=== PATIENT | female | born 1960 | race American Indian/Alaskan Native ===

== ENCOUNTER 2018-04-11 13:38 | Emergency (ER) | payer BC ==
--- NOTE | 2018-04-11 14:07 | ED PDOC ---
Arrival/HPI - General Time Seen by Provider: 04/11/18 14:04 Historian: Patient - History of Present Illness Narrative History of Present Illness (Text): 04/11/18 14:07 57 y/o female, no significant pmh, nkda, c/o rt. anterior knee pain s/p twisted about 1 hour ago. Pt. stated that her dog running towards her, twisted the rt. knee, been having pain and able to walk/bear weight, no numbness or tingling, no calf or thigh pain, no fever or chills, no chest pain or shortness of breath , no other medical or psychological complaints. Past Medical History - Provider Review Nursing Documentation Reviewed: Yes Family/Social History - Physician Review Nursing Documentation Reviewed: Yes Family/Social History: Unknown Family HX Allergies/Home Meds Allergies/Adverse Reactions: Allergies No Known Allergies Allergy (Verified 04/11/18 14:16) Review of Systems - Review of Systems Constitutional: absent: Fatigue, Fevers Eyes: absent: Vision Changes ENT: absent: Hearing Changes Respiratory: absent: SOB, Cough Cardiovascular: absent: Chest Pain Gastrointestinal: absent: Abdominal Pain, Diarrhea, Nausea, Vomiting Musculoskeletal: Arthralgias. absent: Back Pain, Joint Swelling, Myalgias Skin: absent: Rash, Pruritis Neurological: absent: Headache, Dizziness Psychiatric: absent: Anxiety, Depression Physical Exam Vital Signs Reviewed: Yes Vital Signs Temp Pulse Resp BP Pulse Ox 04/11/18 20:04 97.9 F 86 16 160/82 H 99 04/11/18 18:03 86 16 160/82 H 99 04/11/18 16:02 88 16 168/88 H 99 04/11/18 14:11 98.3 F 86 17 173/93 H 99 Temperature: Afebrile Blood Pressure: Hypertensive Pulse: Regular Respiratory Rate: Normal Appearance: Positive for: Well-Appearing, Non-Toxic, Comfortable Pain Distress: Mild Mental Status: Positive for: Alert and Oriented X 3 - Systems Exam Head: Present: Atraumatic, Normocephalic Pupils: Present: PERRL Extroacular Muscles: Present: EOMI Conjunctiva: Present: Normal Mouth: Present: Moist Mucous Membranes Neck: Present: Normal Range of Motion Respiratory/Chest: Present: Clear to Auscultation, Good Air Exchange. No: Respiratory Distress, Accessory Muscle Use Cardiovascular: Present: Regular Rate and Rhythm, Normal S1, S2. No: Murmurs Abdomen: No: Tenderness, Distention, Peritoneal Signs Back: Present: Normal Inspection Upper Extremity: Present: Normal Inspection. No: Cyanosis, Edema Lower Extremity: Present: Normal Inspection, NORMAL PULSES, Normal ROM, Neurovascularly Intact, Capillary Refill < 2 s, Other (RLE: mild +ttp on the lateral anterior aspect of the knee, no calf or thigh swelling/tenderness, negative jorden and mcguire signs, FROM without limitation, sensation intact, motor 5/5, +DPPT Pulses, capillary refill< 2 seconds, neurovascular intact. ). No: Edema, CALF TENDERNESS, Cyanosis, Jorden's Sign, Swelling, Erythema, Deformity, Temperature Abnormalties Neurological: Present: GCS=15, CN II-XII Intact, Speech Normal Skin: Present: Warm, Dry, Normal Color. No: Rashes Psychiatric: Present: Alert, Oriented x 3, Normal Insight, Normal Concentration Medical Decision Making ED Course and Treatment: 04/11/18 14:30 -rt. knee xray -pt. refused pain med 04/11/18 16:41 -xray show IMPRESSION: Irregularity and depression of the lateral tibial plateau of indeterminate chronicity. No significant joint effusion. Correlate clinically. -I spoke to the orthopedic Dr. Crowder, recommend the CT of the rt. knee, ordered -blas wrap applied by me with neurovascular intact. -Pt. request pain med now but refused IV/IM at this time, percocet/zofran ordered. 04/11/18 18:13 -Pt. evaluated by Dr. Crowder in the ER, came to evaluate the patient in person, recommend to have CT rt. knee and discharge home with blas wrap/knee immmobilizer with crutches, will see the patient outpatient as follow up with no emergent surgical intervention at this time. 04/11/18 -I just check the [facility] report, there is no visible or available [facility] report available noted. -CT RLE: Comminuted fracture right lateral tibial plateau with suprapatellar fat/fluid/blood level. -blas wrap and knee immobilizer applied by me with neurovascular intact as per orthopedic Dr. Crowder, copy of the CT given to the patient, will discharge home -Discharge home with percocet, blas wrap, knee immobilizer, crutches, non-weight bearing, bring the CT disc to Dr. Crowder as he is expecting to see you regarding about your injury as you been told, follow up with your own pmd within 3 days, return to the ER for any new or worsening signs or symptoms. - RAD Interpretation Radiology Orders: 04/11/18 14:27 KNEE W PATELLA RIGHT 3 VIEW [RAD] Stat 04/11/18 16:40 EXT LOWER W/O CONTRAST RIGHT [CT] Stat Rt. knee xray: PROCEDURE: Right Knee Radiographs. HISTORY: rt. knee pain x 2 hour s/p injury COMPARISON: None. FINDINGS: BONES: Irregularity and depression of the lateral tibial plateau. In the absence of a significant joint effusion or labral hemarthrosis, this may represent a chronic deformity. However, clinical correlation is requested. There is no acute fracture seen elsewhere. JOINTS: Normal. No osteoarthritis. JOINT EFFUSION: None. OTHER FINDINGS: None. IMPRESSION: Irregularity and depression of the lateral tibial plateau of indeterminate chronicity. No significant joint effusion. Correlate clinically. CT RLE: [facility] Division of Radiology [address] [address] Tel. no. Patient Name: SAYDA ALBERT Pt. Address: [address] [place] [address] Rec #: [id number] [place] [address]: Sujatha PATTERSON,[place] Pt Order Location: ED : 1960 Female Age: 57 Order #: [id number] Reason for exam: rt. lateral tibial plateau fracture, unknown chron CT Scan EXT LOWER W/O CONTRAST RIGHT Exam Date: 04/11/18 This imaging exam was performed at [facility] EXAM: CT Right Lower Extremity Without Intravenous Contrast, Knee EXAM DATE/TIME: Examination ordered 04/11/2018 4:40 PM. Image number total count reviewed [id number] CLINICAL HISTORY: The patient is 57 years old and is female; Abnormal findings; Abnormal imaging study; Rt knee; Additional info: Rt. Lateral tibial plateau fracture, unknown chron Facility exam id and description: Ct extlowsr ext lower w/o contrast right TECHNIQUE: Axial computed tomography images of the right knee without intravenous contrast. All CT scans at this facility use at least one of these dose optimization techniques: automated exposure control; mA and/or kV adjustment per patient size (includes targeted exams where dose is matched to clinical indication); or iterative reconstruction. Coronal and sagittal reformatted images were created and reviewed. COMPARISON: DX - KNEE W PATELLA RIGHT 3 VIEW 2018-04-11 14:51 FINDINGS: BONES/JOINTS: Comminuted fracture right lateral tibial plateau with suprapatellar fat/fluid/blood level. SOFT TISSUES: See above IMPRESSION: Comminuted fracture right lateral tibial plateau with suprapatellar fat/fluid/blood level. Dictated By: Bharathi Baltazar MD Dictated Date/Time: 04/11/182017 Signed By: Bharathi Baltazar MD Date Signed: 2017 Transcribed By: SINDI Transcribe Date/Time : 04/11/182017 Biological Technical Officer: Radiologist - Medication Orders Current Medication Orders: Discontinued Medications Ondansetron HCl (Zofran Odt) 4 mg PO STAT STA Stop: 04/11/18 16:48 Last Admin: 04/11/18 16:58 Dose: 4 mg Oxycodone/Acetaminophen (Percocet 5/325 Mg Tab) 1 tab PO STAT STA Stop: 04/11/18 16:48 Last Admin: 04/11/18 16:58 Dose: 1 tab MAR Pain Assessment Document 04/11/18 16:58 MS (Rec: 04/11/18 16:59 MS [facility] [place]-[id number]) Pain Reassessment Is this a pain reassessment? No Sleep Is patient sleeping during reassessment? No Presence of Pain Presence of Pain Yes Pain Scale Used Pain Scale Used Numeric Location Left, Right or Bilateral Right Pain Location Body Site Knee Description Description Constant Intensity of Pain at present 8 - PA / [employer] / Resident Statement MD/DO has reviewed & agrees with the documentation as recorded. Disposition/Present on Arrival - Present on Arrival Any Indicators Present on Arrival: No History of DVT/PE: No History of Uncontrolled Diabetes: No Urinary Catheter: No History of Decub. Ulcer: No - Disposition Have Diagnosis and Disposition been Completed?: Yes Diagnosis: Tibial plateau fracture, right Disposition: HOSPITALIZED Disposition Time: 14:31 Condition: IMPROVED Discharge Instructions (ExitCare): Tibial Plateau Fracture Additional Instructions: -Discharge home with percocet, blas wrap, knee immobilizer, crutches, non-weight bearing, bring the CT disc to Dr. Crowder as he is expecting to see you regarding about your injury as you been told, follow up with your own pmd within 3 days, return to the ER for any new or worsening signs or symptoms. Prescriptions: oxyCODONE/Acetaminophen [Percocet 5/325 mg Tab] 1 tab PO QID PRN #12 tab PRN Reason: Other Referrals: Evan Crowder MD [Staff Provider] - Follow up with primary Forms: WORK NOTE
[2018-04-11 14:19] VITALS: PULSE 86; O2SAT 99; BMI 28.3
--- NOTE | 2018-04-11 16:04 | RAD ---
PROCEDURE: Right Knee Radiographs. HISTORY: rt. knee pain x 2 hour s/p injury COMPARISON: None. FINDINGS: BONES: Irregularity and depression of the lateral tibial plateau. In the absence of a significant joint effusion or labral hemarthrosis, this may represent a chronic deformity. However, clinical correlation is requested. There is no acute fracture seen elsewhere. JOINTS: Normal. No osteoarthritis. JOINT EFFUSION: None. OTHER FINDINGS: None. IMPRESSION: Irregularity and depression of the lateral tibial plateau of indeterminate chronicity. No significant joint effusion. Correlate clinically.
[2018-04-11] MEDS ORDERED: Oxycodone/Acetaminophen 5/325 mg Tab PO STA (16:47)
[2018-04-11 20:03] VITALS: BP 160/82; RESP 16
[2018-04-11 20:05] VITALS: TEMP 97.9
--- NOTE | 2018-04-12 09:15 | CT ---
EXAM: CT Right Lower Extremity Without Intravenous Contrast, Knee EXAM DATE/TIME: Examination ordered 04/11/2018 4:40 PM. Image number total count reviewed [id number] CLINICAL HISTORY: The patient is 57 years old and is female; Abnormal findings; Abnormal imaging study; Rt knee; Additional info: Rt. Lateral tibial plateau fracture, unknown chron Facility exam id and description: Ct extlowsr ext lower w/o contrast right TECHNIQUE: Axial computed tomography images of the right knee without intravenous contrast. All CT scans at this facility use at least one of these dose optimization techniques: automated exposure control; mA and/or kV adjustment per patient size (includes targeted exams where dose is matched to clinical indication); or iterative reconstruction. Coronal and sagittal reformatted images were created and reviewed. COMPARISON: DX - KNEE W PATELLA RIGHT 3 VIEW 2018-04-11 14:51 FINDINGS: BONES/JOINTS: Comminuted fracture right lateral tibial plateau with suprapatellar fat/fluid/blood level. SOFT TISSUES: See above IMPRESSION: Comminuted fracture right lateral tibial plateau with suprapatellar fat/fluid/blood level.
--- NOTE | 2018-04-15 11:19 | CON ---
DATE: 04/11/2018 REASON FOR CONSULTATION: Right knee tibial plateau fracture. HISTORY OF PRESENT ILLNESS: This is a 57-year-old female who was walking her dog today, sustained a fall when a dog ran into her right knee. The patient's knee buckled and she was not able to get up and walk afterwards. She presents to [facility] with complaints of right knee pain and swelling. Initial x-rays were done confirmed lateral tibial plateau fracture. I was consulted for further evaluation and treatment. The patient denies any knee problems prior to her injury. PHYSICAL EXAMINATION: EXTREMITIES: Right knee, there is diffuse swelling. Tender to palpation over the lateral tibial plateau. Knee range of motion is 5 degrees to 20 degrees. Limited due to pain. Neurovascularly intact. The patient can straight leg raise. SKIN: Intact. LABORATORY DATA: X-rays of the right knee were seen and reviewed showed depressed lateral tibial plateau fracture. CT scan of the right knee was also seen and reviewed shows a depressed right tibial plateau fracture, greater than 4 mm loss of big void of the anterior and peripheral tibial plateau with highly comminuted fracture. There is also depression of the lateral tibial plateau. ASSESSMENT: Right knee lateral tibial plateau fracture type 3. PLAN: I had a long discussion with the patient regarding the above findings. Due to her injury and instability of the fracture pattern, I recommended surgery to prevent deformity. Risks of nonoperative treatment were explained, these include chronic pain, potential development of early arthritis and deformity of the right knee. Risks of surgeries were also explained and benefits. I strongly recommended surgical fixation of this fracture; however, the patient would like to avoid surgery and elected to proceed with conservative therapy knowing the risk of deformity. She also expressed to get a second opinion. At this time, she was placed into a knee brace and recommended nonweightbearing and following up with me in 2 to 3 days. Evan Crowder MD
== END 2018-04-11 19:30 | disposition short-term general hospital (02) ==
LOC: ED 13:38
DX: S82.141A Displaced bicondylar fracture of right tibia, initial encounter for closed fracture (principal); X50.1XXA Overexertion from prolonged static or awkward postures, initial encounter; Y93.K1 Activity, walking an animal